=== PATIENT | female | born 1955 | race Caucasian/White ===

== ENCOUNTER → 2017-03-29 | Outpatient (CLI) | payer BC ==
[~2017-03-29] VITALS: Ht 160 cm; Wt 83.2 kg
[~2017-03-29] MED LIST: ABILIFY10 MG PO; ABILIFY15 MG PO; AMBIEN 5 MG TABL5 M1 PO; B COMPLEX-VITA1 EACH; B-COMPLEX-VITA1 EACH PO; CALCIUM 600 +1 EAC5 PO; CINNAMON PO; CLONAZEPAM; COZAAR 50 MG TA50 M2 PO; CYMBALTA30 MG PO; CYMBALTA60 MG PO; DEPLIN15 MG PO; FENOFIBRATE160 MG PO; FENOFIBRATE43 MG PO; FISH OIL 1,0001 EAC5 PO; FLEXI JOINT TA1 EAC1 PO; FLONASE; FLONASE 0.05%50 MCG; GARLIC OIL1 EAC1 PO; HORMONE; MULTIVITAMINS; NAPROXEN 375 M375 M1 PO; NORCO 5-325 TA1 EACH PO; PRILOSEC 10MG C10 M1 PO; PROMETRIUM100 MG PO; SIMVASTATIN20 MG PO; SINGULAIR 10 MG10 M1 PO; TIZANIDINE HCL 22 M1 PO; TOPROL XL50 MG PO; VITAMIN D35000 UNI1 PO; WELLBUTRIN XL150 M1 PO; XANAX 0.5 MG0.5 M1 PO; ZESTRIL20 MG PO; ZOCOR
[2017-03-29 09:22] VITALS: BP 125/60
== END ==
LOC: PAIN 08:08
DX: M54.12 Radiculopathy, cervical region (principal); I10 Essential (primary) hypertension; F32.89 Other specified depressive episodes; E78.00 Pure hypercholesterolemia, unspecified; Z88.6 Allergy status to analgesic agent; Z88.8 Allergy status to other drugs, medicaments and biological substances; Z79.899 Other long term (current) drug therapy